=== PATIENT | male | born 1985 | race Caucasian/White ===

== ENCOUNTER 2018-10-09 21:29 | Emergency (ER) | payer SELFPAY ==
[2018-10-10] MEDS ORDERED: CIPROFLOXACIN-HC OTIC SUSP 10 ML AS ONE (01:23)
--- NOTE | 2018-10-10 01:26 | ER Document Report ---
HPI - HPI Time Seen by Provider: 10/10/18 01:09 Pain Level: 2 Notes: Patient is an otherwise healthy 33-year-old male presenting to the emergency department with concern that he has cotton in his ear from the end of a Q-tip. Patient reports that his tried taking this out with multiple different pairs of tweezers and he thinks she may have had his eardrum. Past Medical History - General Information source: Patient - Social History Smoking Status: Never Smoker Frequency of alcohol use: None Drug Abuse: None Family History: Reviewed & Not Pertinent - Medical History Medical History: Negative Surgical Hx: Negative - Immunizations Immunizations up to date: Yes Vertical Provider Document - CONSTITUTIONAL Notes: PHYSICAL EXAMINATION: GENERAL: Well-appearing, well-nourished and in no acute distress. HEAD: Atraumatic, normocephalic. EYES: Pupils equal round extraocular movements intact, conjunctiva are normal. ENT: Nares patent, no foreign body visualized to right ear, abrasions noted and right ear canal. TM appears intact. NECK: Normal range of motion LUNGS: No respiratory distress Musculoskeletal: Normal range of motion NEUROLOGICAL: Normal speech, normal gait. PSYCH: Normal mood, normal affect. SKIN: Warm, Dry, normal turgor, no rashes or lesions noted. Course - Re-evaluation Re-evalutation: There is no foreign body visualized. The ear canal is erythematous with abrasions. Will start patient on Ciprodex for possible otitis externa. Will give patient contact information for ear nose and throat doctor in case he needs to follow-up with them. - Vital Signs Vital signs: Temp Pulse Resp BP Pulse Ox 98.2 F 79 16 120/82 98 10/09/18 22:35 10/09/18 22:35 10/09/18 22:35 10/09/18 22:35 10/09/18 22:35 Discharge - Discharge Clinical Impression: Foreign body sensation in right ear canal Irritation of external ear canal Qualifiers: Laterality: right Qualified Code(s): H61.891 - Other specified disorders of right external ear Condition: Stable Disposition: HOME, SELF-CARE Additional Instructions: We did not see any Q-tips or anything abnormal in your right ear that does not belong there. The ear canal looks irritated, this is probably from you digging around in there. Use the antibiotic drops you can apply 4 drops to the affected ear twice daily for 5-7 days. Follow-up with ear nose and throat doctor if not improving over the next 2-3 days. Referrals: ANANT BUI DO [ASSOCIATE] - Follow up as needed
[2018-10-10] MEDS ORDERED: CIPROFLOXACIN-HC OTIC SUSP 10 ML ONE (01:53)
[2018-10-10 02:18] VITALS: BP 110/75
== END 2018-10-10 02:18 | disposition home or self-care (01) ==
LOC: ER 21:29
DX: H61.891 Other specified disorders of right external ear (principal)
CPT/HCPCS: 99282; J3490